=== PATIENT | female | born 1995 | race Caucasian/White ===

== ENCOUNTER 2022-04-08 11:46 | Outpatient (CLI) | payer BC, SELFPAY | END 2022-04-08 11:47 | disposition home or self-care (01) | LOC: ANHLAB 11:50 | PROVIDERS: PCP Family Medicine Sports Medicine; Visit Provider Obstetrics & Gynecology | DX: Z34.90 Encounter for supervision of normal pregnancy, unspecified, unspecified trimester (principal); Z3A.00 Weeks of gestation of pregnancy not specified | CPT/HCPCS: 36415; 86900; 86901 ==

== ENCOUNTER 2022-04-17 07:25 | Outpatient (CLI) | payer BC, SELFPAY ==
[2022-04-17 09:08] LABS: Hematocrit 35.4 % (37.0-47.0); Hemoglobin 11.8 g/dL (12.0-15.0); Mean Corpuscular HGB Conc 33.3 g/dl (32-36); Mean Corpuscular Hemoglobin 33.3 pg (26-34); Mean Platelet Volume 8.5 fl (7.4-10.4); Platelet Count Result 255 k/mm3 (150-375); Red Blood Count 3.54 M/mm3 (4.2-5.4); Red Cell Distribution Width 12.1 % (11.5-14.5); White Blood Count 11.2 K/mm3 (4.5-10.0)
[2022-04-17 09:24] LABS: Glucose 1 Hour PP 50gm Dose 101 mg/dL
[2022-04-17 10:03] LABS: HIV 1/2 Ab P24 Ag Result Negative (Negative)
== END 2022-04-17 07:26 | disposition home or self-care (01) ==
LOC: ANHLAB 07:26
PROVIDERS: PCP Family Medicine Sports Medicine; Visit Provider Student in an Organized Health Care Education/Training Program
DX: Z34.90 Encounter for supervision of normal pregnancy, unspecified, unspecified trimester (principal)
CPT/HCPCS: 36415; 82947; 85027; 86703; G0432

== ENCOUNTER 2022-06-29 08:11 | Outpatient (CLI) | payer BC, SELFPAY ==
[2022-06-29 08:54] LABS: Hematocrit 36.4 % (37.0-47.0); Hemoglobin 12.1 g/dL (12.0-15.0); Mean Corpuscular HGB Conc 33.2 g/dl (32-36); Mean Corpuscular Hemoglobin 33.2 pg (26-34); Mean Platelet Volume 8.9 fl (7.4-10.4); Platelet Count Result 255 k/mm3 (150-375); Red Blood Count 3.64 M/mm3 (4.2-5.4); Red Cell Distribution Width 12.4 % (11.5-14.5); White Blood Count 10.7 K/mm3 (4.5-10.0)
[2022-06-29 09:51] LABS: Rapid Plasma Reagin Non-Reactive (NonReactive)
== END 2022-06-29 08:12 | disposition home or self-care (01) ==
LOC: ANHLAB 08:14
PROVIDERS: PCP Family Medicine Sports Medicine; Visit Provider Obstetrics & Gynecology
DX: Z01.812 Encounter for preprocedural laboratory examination (principal)
CPT/HCPCS: 36415; 85027; 86592; 86900; 86901

== ENCOUNTER 2022-06-30 04:59 | Inpatient (IN) | payer BC, SELFPAY ==
[2022-06-30] VITALS (53 sets, daily range): BP systolic 87–134; BP diastolic 38–85; PULSE 56–230; RESP 13–18; TEMP 36.3–37.2; O2SAT 94–100; BMI 29.5
[2022-06-30] MEDS: LACTATED RINGERS 1,000 ML 125 ML IV CONT ×2 (05:40→08:21)
--- NOTE | 2022-06-30 05:41 | LDADM ---
This patient, Ivory Kowalski, was admitted to Labor/Delivery/Recovery 120 on 06/30/22 at 04:59. Plans for labor, pain management and were discussed with patient. Patient/family oriented to hospital policies and general routines including ID bracelet, bed and alarms, visiting hours, pain management, procedures, bathroom and other care routines, personal items, smoking policy, room service/diet and guest tray routines, infant security routines, and visiting hours. Patient/Family are encouraged to report perceived risks to care and to ask questions if they do not understand what they are told or what they should do. See OBIX for further documentation.
--- NOTE | 2022-06-30 06:29 | P.PNAN_ITS ---
Anes - Eval Pre Procedure Procedure: Operation Date: 06/30/22 07:30 Proposed Procedures p Section - Zev Washington MD Date/Time: 06/30/22 06:29 Pre Op Diagnosis: C/S Patient Data Age: 27 Gender: F Height: 1.63 m Weight: 78.18 kg Last Vital Signs Pulse 79 06/30/22 05:16 BP 117/79 06/30/22 05:16 Pulse Ox 100 06/30/22 05:16 O2 Del Method Room Air 06/30/22 05:40 Allergies Allergy/AdvReac Type Severity Reaction Status Date / Time azithromycin Allergy Intermediate RASH Verified 06/22/22 14:08 Home Medications Medication Instructions Recorded Confirmed Type vitamins-iron fumarate 65 1 tablet PO DAILY 11/25/21 06/22/22 History mg iron-folic acid 1 mg tablet Patient hx anesthesia problems: none Family hx anesthesia problems: none Results Review: All pre-operative results and documents have been reviewed as part of the pre- operative evaluation. [facility] Past Medical History Medical History Suppression of menstruation Surgical History Surgical History History of tonsillectomy 09/2016 Family History Family History Grandparent Diabetes mellitus Family history of malignant neoplasm of male breast Social History Social History Smoking status: Never smoker Alcohol intake: never Substance use: never Substance use type: does not use Lack of Transportation: No Lack of Food: Never True Current Housing: I Have Housing Concerned About Future Housing: No Difficulty Paying Gas/Electric Bills: No Difficulty Paying for Meds: No Currently Unemployed: No Education: Bachelor's Degree Difficulty w/ Childcare or Family Care: No Living arrangements: other Additional living arrangements comments: 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
--- NOTE | 2022-06-30 06:48 | P.PNAN_ITS ---
Anes - Eval Final PreProcedure Day of Procedure 06/30/22 06:48 Patient weight: overweight Heart: regular rate and rhythm Lungs: clear to auscultation Airway: Mallampati scale class II Neurological: alert and oriented Last oral intake: >/= 8 hours ASA classification: II Emergent: no Anesthetic plan: proceed Anesthesia type and monitoring: regional spinal and standard monitoring Results Review: All pre-operative results and documents have been reviewed as part of the pre- operative evaluation. Informed Consent: The patient's anesthetic plan and its attendant risks and benefits were discussed with the patient/family/POA. Questions were solicited and answers provided to the satisfaction of the patient/family/POA.
[2022-06-30] MEDS: ceFAZolin 2 GM/D5W 50 ML 2 GM/50 ML BAG IVPB (07:01)
--- NOTE | 2022-06-30 08:07 | WPDHPUPDATE1 ---
History and Physical Update Update Date/Time: 06/30/22 08:07 A: 1. 39 week IUP 2. breech presentation P: 1. primary LTCS History and Physical has been reviewed, including an updated exam of the patient. There are NO changes in the patient's condition. Risks, benefits, and alternatives have been discussed and questions answered. Patient agrees to proceed with procedure.
--- NOTE | 2022-06-30 08:09 | PM.OBPRVD ---
OB - Delivery Note Procedure Procedure: Procedures Operation Date: 06/30/22 07:30 <No data on this case meets the specified criteria> Events: Breech Presentation Delivery monitor: External FHT and External Uterine Route of delivery: Specimen: No Quantitative Blood Loss (ml): 510 Anesthesia type: Spinal Disposition: Floor Complications: none Narrative: Patient prepped procedure. Pfannenstiel type fashion with the skin incision. Superiorly inferiorly dissected week muscles which were then dissected bluntly and the peritoneum was entered. Bladder flap developed uterus was scored and extended through the lower segment. Breech was delivered without difficulty cord clamped cut baby was passed off the operative field to the pediatric team attendance. Uterus was manually removed and uterus was exteriorized. Cleared of membranes and clots and then closed using 0 Monocryl in running interlocking manner with good approximation hemostasis noted. Uterus returned to the abdomen and was hemostatic. All subfascial tissue was noted be hemostatic fascia was approximated 0 Vicryl from left angle midline and the right of midline with good approximation hemostasis noted. Subcutaneous tissue approximated 0 plain suture and ernst used to approximate skin edges. Patient this point was sent to recovery room in stable condition. Baby Weeks of gestation at delivery: 39 Infant gender: Female Weight (pounds): 6 Weight (ounces): 10 presentation: breech Placenta delivery description: Manual Removal Cord Vessel Description: 3 Vessels score one minute: 8 score five minutes: 9 AMG Delivery Billing Delivery Delivery: Delivery Charge
[2022-06-30] MEDS: OXYTOCIN 30 UNITS/NS 500 ML 30 UNITS/500 ML BAG 125 UNITS IV CONT (10:02)
--- NOTE | 2022-06-30 10:28 | OBPPTRN ---
1015-Patient transferred to post room #279 via stretcher. Support person present. Oriented to unit, room, information board, rooming in, admission packet and security measures. Patient verbalizes understanding.
[2022-06-30] MEDS: LORATADINE 10 MG TABLET PO (11:40)
[2022-06-30] MEDS: DEXTROSE 5%/0.45% SOD CHL 1,000 ML 125 ML IV CONT (15:39)
[2022-06-30] MEDS: KETOROLAC 30 MG/ML VIAL (*BKC) IV PUSH (16:12)
--- NOTE | 2022-06-30 16:13 | PC.NURSE ---
[id number] Introductions were made, then consulted with patient to assess needs related to . Mother led the conversation with her?plans to feed?her infant and the?experience so far. Resources provided for inpatient and outpatient services with the feeding sheet, mom/baby guide and name written on the white board. Mother voiced understanding of information and requested assistance. Mother works well with her with encouragement and education. Encouraged understanding of the benefits of skin to skin (demonstrating unwrapping infant and placing upright on her chest), stimulating with massage touch, changing positions to encourage wakefulness, how to watch for early feeding cues, responsive feeding, feeding on demand (aiming for 8-12 times in 24 hours, about every 2-3 hours), milk production, building/maintaining a milk supply, duration of feeding, signs of adequate intake/output and how to record on the feeding sheet. Reviewed positioning and ear, shoulder, hip alignment, supporting the breast to facilitate a deep latch, asymmetrical latch (off-center), leading with the chin with a big, open, wide gape and body close to mother. Infant latched optimally to the left breast in football position. Education given to mother of how to visualize suck/swallow ratios and listen for drinking at the breast. was able to maintain latch without discomfort to mother. Nipple care reviewed with optimal latch and good positioning. Reminding mother of comfort measures of healing with a warm and wet washcloth to rinse breast, then leave open to air-dry as needed. Reviewed good handwashing when or touching the breast/nipples to prevent infection. was offered the right breast but was content and no feeding cues were visualized. Mother was instructed on the practice and skill of hand expression. lapped up the 1/2 tsp of colostrum off of the spoon, then went to sleep skin to skin on mother. Resources used to facilitate learning were used with the visual handouts, /QR codes/ tool/mom and baby guide]. Mother voiced understanding of skin to skin, stimulating with massage touch, responsive feedings, hand expressed colostrum, talking to to encourage if it has been 2 -2.5 hours since the start of the last , to call if infant does not latch, or if there is discomfort with . Resources provided for inpatient/outpatient with business card, feeding sheet and the mom/baby guide. Parents voiced understanding of information, demonstrated learning and will call if there is a request for assistance. Reported to primary RN. Reported to the primary RN.
[2022-06-30] MEDS: IBUPROFEN 600 MG TABLET PO (22:19)
[2022-07-01 03:48] VITALS: BP 113/72; PULSE 82; RESP 16; TEMP 36.6; O2SAT 100
[2022-07-01] MEDS: IBUPROFEN 600 MG TABLET PO ×4 (03:51→23:04)
[2022-07-01] MEDS: SIMETHICONE 80 MG TAB.CHEW PO ×5 (03:51→23:04)
[2022-07-01 05:58] LABS: Basophils Percent Auto 0.3 % (0.2-1.2); Eosinophils Absolute Auto 0.1 K/mm3 (0-0.3); Hematocrit 31.3 % (37.0-47.0); Hemoglobin 10.2 g/dL (12.0-15.0); Immature Granulocyte Absolute 0.07 K/mm3 (0.00-0.031); Immature Granulocyte Percent A 0.5 % (0-0.5); Lymphocytes Percent Auto 12.1 % (18.3-44.2); Mean Corpuscular HGB Conc 32.6 g/dl (32-36); Mean Corpuscular Hemoglobin 32.4 pg (26-34); Mean Corpuscular Volume 99.4 fl (80-100); Mean Platelet Volume 8.9 fl (7.4-10.4); Monocytes Absolute Auto 0.6 K/mm3 (0.1-0.6); Monocytes Percent Auto 4.5 % (2.6-8.5); Neutrophils Absolute Auto 11.5 K/mm3 (1.3-6.7); Neutrophils Percent Auto 81.6 % (45.5-73.1); Platelet Count Result 229 k/mm3 (150-375); Red Blood Count 3.15 M/mm3 (4.2-5.4); Red Cell Distribution Width 12.6 % (11.5-14.5); White Blood Count 14.1 K/mm3 (4.5-10.0)
--- NOTE | 2022-07-01 07:32 | PM.OBDSVD ---
DS: Admitting Diagnosis Discharge Date 07/02/2022 Admitting Diagnosis DS: Discharge Diagnosis Discharge Diagnosis (1) , delivered: Code(s): O80 - Encounter for full-term uncomplicated delivery Status: Acute OB - DS: Summary OB Procedures : None OB Procedures Intrapartum: OB Procedures: : None Peripartum Data Procedures: Procedures Operation Date: 06/30/22 07:30 Actual Procedure Side Surgeon p Section Bilateral Zev Wahsington MD Time Spent with Patient Time attestation: Total time spent providing and/or coordinating discharge services: DS: Data Data Completed and Pending Labs on day of discharge: Labs from last 24 hours 07/01/22 03:56 WBC 14.1 H RBC 3.15 L Hgb 10.2 L Hct 31.3 L MCV 99.4 MCH 32.4 MCHC 32.6 RDW 12.6 Plt Count 229 MPV 8.9 Immature Gran % (Auto) 0.5 Neut % (Auto) 81.6 H Lymph % (Auto) 12.1 L [place] % (Auto) 4.5 Eos % (Auto) 1.0 Baso % (Auto) 0.3 Lymph # (Auto) 1.70 [place] # (Auto) 0.6 Eos # (Auto) 0.1 Baso # (Auto) 0.0 Abs Immat Gran (auto) 0.07 H Absolute Neuts (auto) 11.5 H Absolute Nucleated RBC 0.0 Nucleated RBC % 0.0 Discharge Plan Discharge Discharging Clinician: Zev Washington Patient Disposition: Home, Self-Care Activity: as tolerated Diet: as tolerated Wound Care Instructions: incision open to air Discharge Instructions: return to office Tuesday or Tuesday of next week for staple removal. Patient Instructions: Antibiotic Form Stand Alone Forms: General Discharge Information Follow-up/Referrals: Zev Washington MD [Physician] - 3 Weeks Discharge Medications: New hydrocodone-acetaminophen 5-325 mg Tablet 1 tablet PO Q3H PRN (Reason: Moderate Pain (4-6)) Qty: 20 0RF ibuprofen 600 mg Tablet 600 mg PO Q6H PRN (Reason: Cramping) Qty: 30 0RF Continued vit-iron fum-folic ac 65 mg iron- 1 mg tablet 1 tablet PO DAILY Date of admission: 06/30/22 04:59 Primary Care Provider: Aravind,Ekta Marcial Admitting Provider: Zev Washington Attending physician on admission: Zev Washington Condition: Stable
[2022-07-01 08:00] VITALS: PULSE 79; RESP 16; O2SAT 98
[2022-07-01 08:25] VITALS: BP 110/63; PULSE 79; RESP 16; TEMP 37.2; O2SAT 98
[2022-07-01] MEDS: DOCUSATE SODIUM 100 MG CAPSULE PO ×2 (08:46→23:04)
[2022-07-01] MEDS: MULTIVIT/MIN/PREN/FOL AC/IRON TABLET 1 TAB PO (08:46)
--- NOTE | 2022-07-01 10:20 | WPDANLDPN2 ---
Anes-Prog Note L&D Date/Time: 07/01/22 10:20 Comfortable throughout: section Neuraxial method: spinal Epidural/Spinal procedure site: clean & non-tender Neuro status: Neuro function grossly intact. Cardiovascular status: normal Respiratory status: normal Airway patency: baseline Mental status: baseline Post-Op hydration status: normal Vital Signs: Last Vital Signs Temp 98.9 F 07/01/22 08:25 Pulse 79 07/01/22 08:25 Resp 16 07/01/22 08:25 BP 110/63 07/01/22 08:25 Pulse Ox 98 07/01/22 08:25 O2 Del Method Room Air 06/30/22 10:30 Pain score (VAS): 2 I/O: Intake & Output 06/30/22 07/01/22 07/01/22 23:59 07:59 15:59 Intake Total 1940 800 Output Total 600 2825 Balance 1340 -2025 Post-procedural complaints: pruritis moderate, treatment effective Patient feedback: Patient satisfied with anesthetic care.
--- NOTE | 2022-07-01 10:21 | WPDANLDNPN2 ---
Anes-Prog Note L&D-Neuraxial Date/Time: 07/01/22 10:21 Neuraxial medications: intrathecal PF morphine Opiod-related complaints: pruritis moderate, treatment effective Patient feedback: Patient satisfied with post-operative pain management.
--- NOTE | 2022-07-01 11:49 | PC.NURSE ---
[id number] Mother verbalizes she is able to independently latch with appropriate positioning/alignment. She denies any nipple discomfort and is responsively . is currently meeting outcomes for weight, output, jaundice and feeding frequencies of 8-12 times in 24 hours. Mother declines any additional assistance/education at this time. Mother is encouraged to call for assistance if her doesn?t latch or there is discomfort with latching. Mother voiced understanding of information shared, will call for assistance if there is pain with latching, unable to wake her infant to breastfeed or for an assessment. The mom was reminded of the mom/baby guide for an additional resource.
[2022-07-01 19:20] VITALS: BP 111/61; PULSE 82; RESP 18; TEMP 36.7; O2SAT 98
[2022-07-02] MEDS: SIMETHICONE 80 MG TAB.CHEW PO ×2 (06:00→08:30)
[2022-07-02] MEDS: IBUPROFEN 600 MG TABLET PO (06:00)
[2022-07-02 08:05] VITALS: BP 119/65; PULSE 79; RESP 18; TEMP 36.3; O2SAT 100
[2022-07-02] MEDS: DOCUSATE SODIUM 100 MG CAPSULE PO (08:30)
[2022-07-02] MEDS: MULTIVIT/MIN/PREN/FOL AC/IRON TABLET 1 TAB PO (08:30)
[2022-07-03 11:12] VITALS: BP 112/69; PULSE 85; RESP 18; TEMP 36.7; O2SAT 99
== END 2022-07-02 10:25 | disposition home or self-care (01) | DRG 788 ==
LOC: ANHLDR 05:07 → ANHOB2 10:24
PROVIDERS: Admitting Provider Obstetrics & Gynecology; PCP Family Medicine Sports Medicine; Visit Provider Obstetrics & Gynecology
PROC: 10D00Z1 Extraction of Products of Conception, Low, Open Approach (ICD-10-PCS; CPT 59514; principal; 2022-06-30 07:30)
DX: O32.1XX0 Maternal care for breech presentation, not applicable or unspecified (principal); Z37.0 Single live birth; Z3A.39 39 weeks gestation of pregnancy; O99.73 Diseases of the skin and subcutaneous tissue complicating the puerperium; L29.9 Pruritus, unspecified
CPT/HCPCS: 36415; 85025; 85027; 86592; 86900; 86901; A9270; J0131; J0690; J1885; J2274; J2405; J2590; J7120

== ENCOUNTER 2023-12-02 09:43 | Outpatient (CLI) | payer BC, SELFPAY | END 2023-12-02 09:44 | disposition home or self-care (01) | LOC: ANHLAB 09:45 | PROVIDERS: PCP Family Medicine Sports Medicine; Visit Provider Obstetrics & Gynecology | DX: O02.1 Missed abortion (principal) | CPT/HCPCS: 36415; 84702 ==

== ENCOUNTER 2023-12-05 07:30 | Outpatient (CLI) | payer BC, SELFPAY ==
[2023-12-05 08:26] LABS: Beta HCG Quantitative < 2.39 mIU/ML
== END 2023-12-05 07:31 | disposition home or self-care (01) ==
LOC: ANHLAB 07:31
PROVIDERS: PCP Family Medicine Sports Medicine; Visit Provider Obstetrics & Gynecology
DX: O02.1 Missed abortion (principal)
CPT/HCPCS: 36415; 84702

== ENCOUNTER 2024-01-03 09:01 | Outpatient (CLI) | payer BC, SELFPAY | END 2024-01-03 09:02 | disposition home or self-care (01) | PROVIDERS: PCP Family Medicine Sports Medicine; Visit Provider Obstetrics & Gynecology | DX: N92.6 Irregular menstruation, unspecified (principal) | CPT/HCPCS: 36415; 84702 ==

== ENCOUNTER 2024-01-05 11:45 | Outpatient (CLI) | payer BC, SELFPAY | END 2024-01-05 11:46 | disposition home or self-care (01) | LOC: ANHLAB 11:46 | PROVIDERS: PCP Family Medicine Sports Medicine; Visit Provider Obstetrics & Gynecology | DX: N92.6 Irregular menstruation, unspecified (principal) | CPT/HCPCS: 36415; 84702 ==

== ENCOUNTER 2024-05-03 08:19 | Outpatient (CLI) | payer BC, SELFPAY ==
[2024-05-03 08:47] LABS: Basophils Percent Auto 0.2 % (0.2-1.2); Eosinophils Absolute Auto 0.1 K/mm3 (0-0.3); Eosinophils Percent Auto 1.1 % (0-4.4); Hematocrit 35.8 % (37.0-47.0); Hemoglobin 12.3 g/dL (12.0-15.0); Immature Granulocyte Absolute 0.06 K/mm3 (0.00-0.031); Immature Granulocyte Percent A 0.6 % (0-0.5); Lymphocytes Absolute Auto 1.97 K/mm3 (0.9-3.2); Lymphocytes Percent Auto 19.9 % (18.3-44.2); Mean Corpuscular HGB Conc 34.4 g/dl (32-36); Mean Corpuscular Hemoglobin 33.3 pg (26-34); Mean Platelet Volume 8.7 fl (7.4-10.4); Monocytes Absolute Auto 0.5 K/mm3 (0.1-0.6); Neutrophils Absolute Auto 7.3 K/mm3 (1.3-6.7); Neutrophils Percent Auto 73.2 % (45.5-73.1); Platelet Count Result 257 k/mm3 (150-375); Red Blood Count 3.69 M/mm3 (4.2-5.4); Red Cell Distribution Width 12.1 % (11.5-14.5); White Blood Count 9.9 K/mm3 (4.5-10.0)
[2024-05-03 09:33] LABS: HIV 1/2 Ab P24 Ag Result Negative (Negative)
[2024-05-03 10:57] LABS: Hepatitis B Surface Antigen Negative (Negative); Rubella IgG Antibody 58.3 IU/ML
[2024-05-03 18:50] LABS: Rapid Plasma Reagin Non-Reactive (NonReactive)
[2024-05-04 13:45] LABS: CMV IgG Antibody <0.60 U/mL; Varicella IgG Antibody 4.54 S/CO
== END 2024-05-03 08:20 | disposition home or self-care (01) ==
PROVIDERS: PCP Family Medicine Sports Medicine; Visit Provider Obstetrics & Gynecology
DX: Z34.90 Encounter for supervision of normal pregnancy, unspecified, unspecified trimester (principal)
CPT/HCPCS: 36415; 85025; 86592; 86644; 86703; 86747; 86762; 86787; 86850; 86900; 86901; 87086; 87340; G0432

== ENCOUNTER 2024-06-15 08:37 | Outpatient (CLI) | payer BC, SELFPAY ==
[2024-06-15 10:22] LABS: Hemoglobin 11.5 g/dL (12.0-15.0); Mean Corpuscular HGB Conc 33.8 g/dl (32-36); Mean Corpuscular Hemoglobin 32.8 pg (26-34); Mean Corpuscular Volume 96.9 fl (80-100); Mean Platelet Volume 8.5 fl (7.4-10.4); Platelet Count Result 269 k/mm3 (150-375); Red Blood Count 3.51 M/mm3 (4.2-5.4); Red Cell Distribution Width 11.9 % (11.5-14.5); White Blood Count 9.6 K/mm3 (4.5-10.0)
[2024-06-15 10:40] LABS: Glucose 1 Hour PP 50gm Dose 81 mg/dL
[2024-06-15 10:54] LABS: Rapid Plasma Reagin Non-Reactive (NonReactive)
[2024-06-15 11:21] LABS: HIV 1/2 Ab P24 Ag Result Negative (Negative)
== END 2024-06-15 08:38 | disposition home or self-care (01) ==
LOC: ANHLAB 08:38
PROVIDERS: Visit Provider Obstetrics & Gynecology
DX: Z34.90 Encounter for supervision of normal pregnancy, unspecified, unspecified trimester (principal)
CPT/HCPCS: 36415; 82947; 85027; 86592; 86703; G0432

== ENCOUNTER 2024-08-20 13:28 | Outpatient (RCR) | payer BC, SELFPAY ==
[2024-08-20 13:58] VITALS: BP 119/73; PULSE 78
== END 2024-09-04 17:59 | disposition home or self-care (01) ==
LOC: ANHOBOP 13:28
PROVIDERS: Visit Provider Obstetrics & Gynecology
DX: O36.8190 Decreased fetal movements, unspecified trimester, not applicable or unspecified (principal); Z3A.38 38 weeks gestation of pregnancy
CPT/HCPCS: 59025

== ENCOUNTER 2024-09-02 06:24 | Inpatient (IN) | payer BC, SELFPAY ==
[2024-09-02] VITALS (174 sets, daily range): BP systolic 65–147; BP diastolic 30–129; PULSE 59–150; RESP 14–20; TEMP 36.2–37.6; O2SAT 84–100
--- NOTE | 2024-09-02 08:25 | LDADM ---
This patient, Ivory Kowalski, was admitted to Labor/Delivery/Recovery 102 on 09/02/24 at 06:24. Plans for labor, pain management and were discussed with patient. Patient/family oriented to hospital policies and general routines including ID bracelet, bed and alarms, visiting hours, pain management, procedures, bathroom and other care routines, personal items, smoking policy, room service/diet and guest tray routines, infant security routines, and visiting hours. Patient/Family are encouraged to report perceived risks to care and to ask questions if they do not understand what they are told or what they should do. See OBIX for further documentation.
[2024-09-02 09:08] LABS: Basophils Percent Auto 0.3 % (0.2-1.2); Eosinophils Absolute Auto 0.1 K/mm3 (0-0.3); Eosinophils Percent Auto 0.8 % (0-4.4); Hematocrit 41.4 % (37.0-47.0); Hemoglobin 13.6 g/dL (12.0-15.0); Immature Granulocyte Absolute 0.05 K/mm3 (0.00-0.031); Immature Granulocyte Percent A 0.4 % (0-0.5); Lymphocytes Absolute Auto 1.79 K/mm3 (0.9-3.2); Lymphocytes Percent Auto 15.4 % (18.3-44.2); Mean Corpuscular HGB Conc 32.9 g/dl (32-36); Mean Corpuscular Hemoglobin 31.6 pg (26-34); Mean Corpuscular Volume 96.1 fl (80-100); Mean Platelet Volume 8.8 fl (7.4-10.4); Monocytes Absolute Auto 0.5 K/mm3 (0.1-0.6); Monocytes Percent Auto 4.1 % (2.6-8.5); Neutrophils Absolute Auto 9.2 K/mm3 (1.3-6.7); Platelet Count Result 271 k/mm3 (150-375); Red Blood Count 4.31 M/mm3 (4.2-5.4); Red Cell Distribution Width 13.1 % (11.5-14.5); White Blood Count 11.7 K/mm3 (4.5-10.0)
[2024-09-02 09:54] LABS: Syphilis IgG/IgM Antibody Negative (Negative)
[2024-09-02 10:00] LABS: HIV 1/2 Ab P24 Ag Result Negative (Negative)
[2024-09-02] MEDS: LACTATED RINGERS 1,000 ML 125 ML IV CONT ×3 (11:54→15:55)
--- NOTE | 2024-09-02 12:34 | WPDANESEPP ---
Anes - Eval Pre Procedure Procedure: labor epidural Date/Time: 09/02/24 12:34 Preop Diagnosis: labor pain Pre Op Diagnosis: Contractions Patient Data Age: 29 Gender: F Height: 1.63 m Weight: 79.5 kg Last Vital Signs Temp 36.6 C 09/02/24 11:08 Pulse 78 09/02/24 12:16 BP 104/67 09/02/24 12:16 O2 Del Method Room Air 09/02/24 07:58 Allergies Allergy/AdvReac Type Severity Reaction Status Date / Time azithromycin Allergy Intermediate RASH Verified 08/11/24 13:48 Home Medications ?Medication ?Instructions ?Recorded ?Confirmed ?Type vitamins-iron fumarate 65 1 tablet PO DAILY 11/25/21 08/11/24 History mg iron-folic acid 1 mg tablet Laboratory Tests 09/02/24 08:50 WBC 11.7 H K/mm3 (4.5-10.0) RBC 4.31 M/mm3 (4.2-5.4) Hgb 13.6 g/dL (12.0-15.0) Hct 41.4 % (37.0-47.0) MCV 96.1 fl (80-100) MCH 31.6 pg (26-34) MCHC 32.9 g/dl (32-36) RDW 13.1 % (11.5-14.5) Plt Count 271 k/mm3 (150-375) MPV 8.8 fl (7.4-10.4) Immature Gran % (Auto) 0.4 % (0-0.5) Neut % (Auto) 79.0 H % (45.5-73.1) Lymph % (Auto) 15.4 L % (18.3-44.2) [place] % (Auto) 4.1 % (2.6-8.5) Eos % (Auto) 0.8 % (0-4.4) Baso % (Auto) 0.3 % (0.2-1.2) Lymph # (Auto) 1.79 K/mm3 (0.9-3.2) [place] # (Auto) 0.5 K/mm3 (0.1-0.6) Eos # (Auto) 0.1 K/mm3 (0-0.3) Baso # (Auto) 0.0 K/mm3 (0.0-0.1) Abs Immat Gran (auto) 0.05 H K/mm3 (0.00-0.031) Absolute Neuts (auto) 9.2 H K/mm3 (1.3-6.7) Absolute Nucleated RBC 0.000 K/mm3 (0.0-0.012) Nucleated RBC % 0.0 % (0.0-0.2) Syphilis IgG/IgM Ab Negative (Negative) HIV 1&2 Ab/P24 Ag 4thGn Negative (Negative) Blood Type A Positive Antibody Screen Negative Patient hx anesthesia problems: none Family hx anesthesia problems: none Results Review: All pre-operative results and documents have been reviewed as part of the pre-operative evaluation. [facility] Past Medical History Medical History Suppression of menstruation Surgical History Surgical History History of tonsillectomy 09/2016 Family History Family History Grandparent Diabetes mellitus Family history of malignant neoplasm of male breast Social History Social History Smoking status: Never smoker Alcohol intake: never Substance use: never Substance use type: does not use Do You Feel Safe in your Home?: Yes Lack of Transportation: No Lack of Food: Never True Current Housing: I Have Housing Concerned About Future Housing: No Difficulty Paying Gas/Electric Bills: No Difficulty Paying for Meds: No Currently Unemployed: No Education: Bachelor's Degree Difficulty w/ Childcare or Family Care: No Living arrangements: other Additional living arrangements comments: Occupation/Education: occupation 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
--- NOTE | 2024-09-02 16:32 | PM.IMHP ---
H&P: HPI History of Present Illness Date/Time: 09/02/24 16:32 Chief Complaint: Contractions Narrative: 29 y/o at 39 5/7 weeks here with contractions. She has a prior for breech. She switched providers hoping to find a doctor who would support a TOLAC. Contractions yesterday, finally strong enough this morning to get her to come in. GBS neg. EFW at 36 weeks 6#9oz. Prior baby was 6#6oz by . She is currently comfortable with epidural. Strongly wants a TOLAC. Review of Systems Review of Systems: All systems reviewed & are unremarkable except as noted in HPI and below [facility] Surgical History Surgical History (Updated 09/02/24 @ 16:42 by Ulysses Charles MD) History of delivery History of tonsillectomy 09/2016 Family History Family History Grandparent Diabetes mellitus Family history of malignant neoplasm of male breast Social History Social History Smoking status: Never smoker Alcohol intake: never Substance use: never Substance use type: does not use Do You Feel Safe in your Home?: Yes Lack of Transportation: No Lack of Food: Never True Current Housing: I Have Housing Concerned About Future Housing: No Difficulty Paying Gas/Electric Bills: No Difficulty Paying for Meds: No Currently Unemployed: No Education: Bachelor's Degree Difficulty w/ Childcare or Family Care: No Living arrangements: other Additional living arrangements comments: Occupation/Education: occupation 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 Gender identity (if verbalized by the patient): Female Sexual Orientation (if Verbalized by the Patient): Straight or Heterosexual Spiritual care concerns: No Meds Home Medications and Allergies Home Medications ?Medication ?Instructions ?Recorded ?Confirmed ?Type vitamins-iron fumarate 65 1 tablet PO DAILY 11/25/21 08/11/24 History mg iron-folic acid 1 mg tablet Allergies Allergy/AdvReac Type Severity Reaction Status Date / Time azithromycin Allergy Intermediate RASH Verified 08/11/24 13:48 Vital Signs Vital Signs - 24 hr 09/02/24 07:58 09/02/24 08:41 09/02/24 09:04 Temperature 36.2 C L Pulse Rate 99 Blood Pressure 111/74 Pulse Oximetry Oxygen Delivery Room Air 09/02/24 09:16 09/02/24 09:31 09/02/24 09:46 Temperature Pulse Rate 97 98 102 H Blood Pressure 117/73 112/67 132/64 Pulse Oximetry Oxygen Delivery 09/02/24 10:01 09/02/24 10:16 09/02/24 10:31 Temperature Pulse Rate 91 85 92 Blood Pressure 110/65 107/58 L 90/71 L Pulse Oximetry Oxygen Delivery 09/02/24 10:45 09/02/24 11:08 09/02/24 11:16 Temperature 36.6 C Pulse Rate 82 95 Blood Pressure 117/63 103/65 Pulse Oximetry Oxygen Delivery 09/02/24 11:46 09/02/24 12:01 09/02/24 12:16 Temperature Pulse Rate 148 H 90 78 Blood Pressure 147/129 H 112/72 104/67 Pulse Oximetry Oxygen Delivery 09/02/24 12:38 09/02/24 12:40 09/02/24 12:45 Temperature Pulse Rate 90 Blood Pressure 114/72 Pulse Oximetry 99 100 Oxygen Delivery 09/02/24 12:50 09/02/24 12:55 09/02/24 13:00 Temperature Pulse Rate Blood Pressure Pulse Oximetry 100 100 100 Oxygen Delivery 09/02/24 13:01 09/02/24 13:05 09/02/24 13:06 Temperature Pulse Rate 83 76 Blood Pressure 121/60 113/49 L Pulse Oximetry 100 Oxygen Delivery 09/02/24 13:08 09/02/24 13:10 09/02/24 13:14 Temperature Pulse Rate 78 Blood Pressure 114/63 Pulse Oximetry 100 97 Oxygen Delivery 09/02/24 13:16 09/02/24 13:18 09/02/24 13:24 Temperature Pulse Rate 78 81 Blood Pressure 107/52 L 108/63 Pulse Oximetry 99 Oxygen Delivery 09/02/24 13:27 09/02/24 13:30 09/02/24 13:32 Temperature Pulse Rate Blood Pressure Pulse Oximetry 97 99 98 Oxygen Delivery 09/02/24 13:37 09/02/24 13:42 09/02/24 13:44 Temperature Pulse Rate 71 76 Blood Pressure 131/61 94/41 L Pulse Oximetry 94 99 Oxygen Delivery 09/02/24 13:47 09/02/24 13:48 09/02/24 13:51 Temperature Pulse Rate 80 79 70 Blood Pressure 86/54 L 104/49 L 92/53 L Pulse Oximetry 100 Oxygen Delivery 09/02/24 13:52 09/02/24 13:53 09/02/24 13:57 Temperature 36.3 C L Pulse Rate 66 75 Blood Pressure 99/60 L 83/30 L Pulse Oximetry 100 100 Oxygen Delivery 09/02/24 14:00 09/02/24 14:01 09/02/24 14:02 Temperature Pulse Rate 77 76 Blood Pressure 70/44 L 98/62 L Pulse Oximetry 100 Oxygen Delivery 09/02/24 14:03 09/02/24 14:06 09/02/24 14:07 Temperature Pulse Rate 66 88 Blood Pressure 111/67 105/66 Pulse Oximetry 100 Oxygen Delivery 09/02/24 14:08 09/02/24 14:11 09/02/24 14:12 Temperature Pulse Rate 82 84 Blood Pressure 107/62 103/55 L Pulse Oximetry 100 Oxygen Delivery 09/02/24 14:13 09/02/24 14:14 09/02/24 14:17 Temperature Pulse Rate 71 70 Blood Pressure 122/60 104/55 L Pulse Oximetry 98 Oxygen Delivery 09/02/24 14:30 09/02/24 14:46 09/02/24 15:01 Temperature Pulse Rate 71 65 64 Blood Pressure 113/80 113/66 98/51 L Pulse Oximetry Oxygen Delivery 09/02/24 15:03 09/02/24 15:08 09/02/24 15:13 Temperature Pulse Rate Blood Pressure Pulse Oximetry 99 100 100 Oxygen Delivery 09/02/24 15:16 09/02/24 15:18 09/02/24 15:23 Temperature Pulse Rate 63 Blood Pressure 100/58 L Pulse Oximetry 100 100 Oxygen Delivery 09/02/24 15:28 09/02/24 15:30 09/02/24 15:33 Temperature Pulse Rate 61 Blood Pressure 111/72 Pulse Oximetry 100 100 Oxygen Delivery 09/02/24 15:38 09/02/24 15:42 09/02/24 15:46 Temperature Pulse Rate 126 H Blood Pressure 113/65 Pulse Oximetry 100 95 Oxygen Delivery 09/02/24 15:47 09/02/24 15:52 09/02/24 15:55 Temperature Pulse Rate Blood Pressure Pulse Oximetry 100 100 93 Oxygen Delivery 09/02/24 16:00 09/02/24 16:01 09/02/24 16:02 Temperature Pulse Rate 88 Blood Pressure 73/54 L Pulse Oximetry 100 100 84 L Oxygen Delivery 09/02/24 16:04 09/02/24 16:07 09/02/24 16:12 Temperature Pulse Rate 60 Blood Pressure 116/72 Pulse Oximetry 100 100 Oxygen Delivery 09/02/24 16:16 09/02/24 16:17 09/02/24 16:22 Temperature Pulse Rate 61 Blood Pressure 92/69 L Pulse Oximetry 100 100 Oxygen Delivery 09/02/24 16:27 09/02/24 16:30 09/02/24 16:31 Temperature 36.6 C Pulse Rate 73 Blood Pressure 109/63 Pulse Oximetry 100 Oxygen Delivery Exam Const: Orientation/consciousness: patient oriented x3 Other: Well-developed, well-nourished female in no acute distress. Neck: Thyroid: thyroid normal Lymphatic: no lymphadenopathy noted (in neck, axilla or inguinal nodes) Resp: Effort & Inspection: normal respiratory effort Auscultation: clear to auscultation bilaterally Cardio: Rate: regular rate Rhythm: regular rhythm Heart sounds: S1 normal heart sound present and S2 normal heart sound present GI: Other: ABD: Soft, nontender, nondistended, gravid. NST reactive 125. TOCO: irregular contractions. No guarding or rebound tenderness. No hepatosplenomegaly. : General: Yes no CVA tenderness Other: Cervix 5/80/-2. Bloody show. Vertex. AROM with clear fluid. IUPC placed. Back/Spine/Pelvis: Back: no CVA tenderness Skin: General skin exam: normal color and no rashes or lesions noted Neuro: General: patient oriented x3 Extrem: Other: Extremities: nontender with no edema Psych: Mental Status: mental status grossly normal Affect: normal affect H&P: Results Labs Labs: Short CBC 09/02/24 Range/Units 08:50 WBC 11.7 H (4.5-10.0) K/mm3 Hgb 13.6 (12.0-15.0) g/dL Hct 41.4 (37.0-47.0) % Plt Count 271 (150-375) k/mm3 Assessment and Plan Assessment and plan (1) Term : Code(s): Z34.90 - Encounter for supervision of normal , unspecified, unspecified trimester Status: Acute Assessment and Plan: A: IUP at 39 5/7 weeks with labor, prior . She desires TOLAC. P: We reviewed risks, benefits and alternatives in detail, including risks of uterine rupture and attendant risks of maternal and morbidity and mortality. She still desires to continue labor. Will continue to observe closely, and plan to augment labor as needed. (2) History of delivery: Code(s): Z98.891 - History of uterine scar from previous surgery Status: Acute
--- NOTE | 2024-09-02 18:10 | PM.OBPNLAB ---
Pain Control Date/time seen: 09/02/24 18:10 Comfortable with epidural. NST 125 reactive, but with occasional late decelerations with strong contractions. TOCO: contractions irregular. Cervix 5/90/-2. Offered either labor augmentation with oxytocin, or repeat . Reviewed risks, benefits and alternatives in detail, and she would like to continue labor for now. Start oxytocin augmentation. Will watch closely.
[2024-09-02] MEDS: OXYTOCIN 30 UNITS/NS 500 ML 30 UNITS/500 ML BAG IV CONT (18:15)
--- NOTE | 2024-09-02 19:47 | PM.OBPNLAB ---
Pain Control Date/time seen: 09/02/24 19:47 Still comfortable with epidural. Oxytocin had been briefly started, has been stopped due to FHR changes. NST with intermittent decelerations after strong contractions. TOCO: contractions every 4-6 min. Cervix 5/90/-2. Unchanged. A: Protracted dilation in the setting of prior . P: Offered repeat . Reviewed risks, benefits and alternatives. She and her partner will discuss whether to try labor a little longer, or proceed to .
--- NOTE | 2024-09-02 20:11 | PM.OBPNLAB ---
Pain Control Date/time seen: 09/02/24 20:11 Patient agrees to undergo repeat for arrest of dilation and nonreassuring heart rate tracing.
--- NOTE | 2024-09-02 20:12 | WPDHPUPDATE1 ---
History and Physical Update Update Date/Time: 09/02/24 20:12 History and Physical has been reviewed, including an updated exam of the patient. There are NO changes in the patient's condition. Risks, benefits, and alternatives have been discussed and questions answered. Patient agrees to proceed with procedure.
[2024-09-02] MEDS: ONDANSETRON INJ 4 MG/2 ML VIAL IV PUSH (20:13)
[2024-09-02] MEDS: FAMOTIDINE 20 MG/2 ML VIAL IV PUSH (20:14)
[2024-09-02] MEDS: ceFAZolin 2 GM/D5W 50 ML 2 GM/50 ML BAG IVPB (20:15)
--- NOTE | 2024-09-02 22:01 | P.PCNOB_ITS ---
OB - Delivery Note Procedure Delivery date: 09/02/24 Pre-op diagnosis: Arrest of Dilation and Non-Reassuring Status Post-op Diagnosis: Same Induction method: None Delivery augmentation: Rupture of Membranes and Pitocin Delivery monitor: External FHT, External Uterine and Internal Uterine Procedure Performed: Repeat Surgeon: Ulysses Charles MD Anesthesia type: Epidural Description of Procedure/Findings: The patient was taken to the operating room where she was prepared and draped in the usual sterile fashion in dorsal supine position with a leftward tilt. She received cefazolin and azithromycin preoperatively. Epidural anesthesia was f ound to be adequate. A Pfannenstiel skin incision was made, excising the previous keloid scar, carrying through to the underlying layer of the fascia. The fascia was incised in the midline and the incision was extended laterally. The fascia was dissected free of the underlying rectus muscles. The rectus muscles were in the midline. The peritoneum was identified, tented up and entered sharply. The peritoneal incision was carefully extended laterally. Tissue edema and adhesions obscured visualization of the bladder, which was densely adherent to the lower uterine segment. The bladder blade was placed. The vesicouterine peritoneum was identified, tented up and entered sharply. The incision was extended laterally and the bladder flap was very carefully developed, again with difficulty owing to adhesions. The bladder blade was replaced. The uterus was then incised sharply in a transverse fashion along the lower uterine segment. The incision was extended laterally. The infant's head was delivered atraumatically to the sterile field, followed by the body. The nose and mouth were bulb suctioned. After a delay, the cord was clamped and cut. The infant was handed off the field. Cord blood was collected. The placenta was removed manually and was passed off the field. The uterus was exteriorized and cleared of all clots and debris. The uterine incision was re approximated using 0 Monocryl in a running, locked fashion. Excellent hemostasis resulted as did excellent reapproximation of the normal anatomy. The uterus was returned the abdomen. The pelvis was irrigated copiously with warmed normal saline. The bladder flap was repaired using a running stitch of 0 Monocryl, and the dawson bulb was palpated to be remote from the repair line. Rigorous hemostasis was assured. The fascial layer was reapproximated using 0 Vicryl in a running fashion. The skin was closed with a running, subcuticular stitch of 4 0 Vicryl. Dermaflex was applied externally. Sponge, lap, needle and instrument counts were correct. The patient was taken to the recovery room in stable condition. The went to the nursery in stable condition. I was present and scrubbed the entire procedure. Of note, the urine was bloody before the surgery began, and remained similar after the procedure had been completed. Specimen: Yes (cord blood) Estimated Blood Loss: 1,045 Drains: Yes (dawson) Packing: No Pathology: Yes (cord blood) Complications: None Condition: Stable Disposition: PACU Baby Date of : 09/02/24 Time of : 21:06 Gestational Age by Date: 39 gender: Male Weight (pounds): 7 Weight (ounces): 14 presentation: vertex Placenta delivery description: Manual Removal and Normal Configuration Cord Vessel Description: 3 Vessels and Delayed Cord Clamping score one minute: 8 score five minutes: 9
--- NOTE | 2024-09-02 22:20 | PM.OBDSVD ---
DS: Admitting Diagnosis Discharge Date 09/04/2024 <Rodri Simpson MD - Last Filed: 09/04/24 07:24> Admitting Diagnosis IUP at 39 5/7 weeks Labor Prior <Ulysses Charles MD - Last Filed: 09/06/24 08:40> DS: Discharge Diagnosis Discharge Diagnosis (1) delivery delivered: Code(s): O82 - Encounter for delivery without indication <Ulysses Charles MD - Last Filed: 09/06/24 08:40> Status: Acute <Ulysses Charles MD - Last Filed: 09/06/24 08:40> OB - DS: Summary OB Procedures : None <Ulysses Charles MD - Last Filed: 09/06/24 08:40> OB Procedures Intrapartum: <Ulysses Charles MD - Last Filed: 09/06/24 08:40> OB Procedures: : None <Ulysses Charles MD - Last Filed: 09/06/24 08:40> Peripartum Data Procedures: Procedures Operation Date: 09/02/24 20:10 <No data on this case meets the specified criteria> <Ulysses Charles MD - Last Filed: 09/06/24 08:40> Time Spent with Patient Time attestation: Total time spent providing and/or coordinating discharge services: <Ulysses Charles MD - Last Filed: 09/06/24 08:40> DS: Data Data Completed and Pending Labs on day of discharge: Labs from last 24 hours 09/02/24 08:50 WBC 11.7 H RBC 4.31 Hgb 13.6 Hct 41.4 MCV 96.1 MCH 31.6 MCHC 32.9 RDW 13.1 Plt Count 271 MPV 8.8 Immature Gran % (Auto) 0.4 Neut % (Auto) 79.0 H Lymph % (Auto) 15.4 L [place] % (Auto) 4.1 Eos % (Auto) 0.8 Baso % (Auto) 0.3 Lymph # (Auto) 1.79 [place] # (Auto) 0.5 Eos # (Auto) 0.1 Baso # (Auto) 0.0 Abs Immat Gran (auto) 0.05 H Absolute Neuts (auto) 9.2 H Absolute Nucleated RBC 0.000 Nucleated RBC % 0.0 Syphilis IgG/IgM Ab Negative HIV 1&2 Ab/P24 Ag 4thGn Negative Blood Type A Positive Antibody Screen Negative <Ulysses Charles MD - Last Filed: 09/06/24 08:40> Discharge Plan Discharge Attending physician on discharge: Rodri Carey <Ulysses Charles MD - Last Filed: 09/06/24 08:40> Rodri Carey <Rodri Simpson MD - Last Filed: 09/04/24 07:24> Consulting providers: Ulysses Charles; Sadaf Engel; Cassadnra Wagner <Ulysses Charles MD - Last Filed: 09/06/24 08:40> Discharging Clinician: Rodri Carey <Ulysses Charles MD - Last Filed: 09/06/24 08:40> Rodri Carey <Rodri Simpson MD - Last Filed: 09/04/24 07:24> Patient Disposition: Home <Ulysses Charles MD - Last Filed: 09/06/24 08:40> Activity: may shower, may drive after 2 weeks and pelvic rest <Ulysses Charles MD - Last Filed: 09/06/24 08:40> may shower, may drive after 2 weeks and pelvic rest <Rodri Simpson MD - Last Filed: 09/04/24 07:24> Diet: regular <Ulysses Charles MD - Last Filed: 09/06/24 08:40> regular <Rodri Simpson MD - Last Filed: 09/04/24 07:24> Wound Care Instructions: incision open to air <Ulysses Charles MD - Last Filed: 09/06/24 08:40> incision open to air <Rodri Simpson MD - Last Filed: 09/04/24 07:24> Discharge Instructions: Call or return if temperature above 100.4? F, increased abdominal pain, increased vaginal bleeding or any new problems. Education: Mom and Baby Guide Given to: Mother Follow-Up: Call your delivering provider's office for an appointment to be seen in: 4 Weeks Mom and baby should come to the [facility] for the follow-up appointment. Appointment Date/Time: September 05, 2024 at 9:00 am What to expect at your follow-up visit: Blood Pressure Check Physical Assessment Call [phone] if you are unable to keep your appointment time. BREAST CARE: * Wear a snug supportive bra. * For engorgement discomfort: Breast Feeding: * Apply warm moist washcloths * Express milk as needed to relieve engorgement * Wear loose clothing Bottle Feeding: * May apply ice packs * For sore nipples: * Identify correct latch-on * Apply warm moist washcloths before and after nursing * Air dry nipples after nursing * May apply Lansinoh cream to nipples ABDOMINAL INCISION: * Allow incision to air dry * Do NOT use lotions for powders on your incision * When showering, allow soap and water to run over the incision, but do not wash incision EPISIOTOMY/PERINEAL CARE: * Until bleeding stops, use your miguelangel bottle after urinating * Change your pad frequently throughout the day * You may take sitz baths several times a day (fill your bathtub with warm water and soak for 20 minutes.) Do NOT bathe in the water * No tub baths until seen by your physician - You may shower ACTIVITY: * Rest as much as possible. * Do not exercise or lift anything heavier than your baby (such as laundry or other children.) * Avoid stairs or driving as much as possible. * Do not put anything into the vagina. No douching, tampons, or sexual activity until seen by physician. NOTIFY PHYSICIAN IF YOU HAVE ANY QUESTIONS OR IF ANY OF THE FOLLOWING SYMPTOMS OCCUR: * If your episiotomy or incision becomes red, swollen, or more painful than what you have experienced in the hospital. * If your vaginal bleeding becomes foul smelling. * If your vaginal bleeding becomes more heavy than a period or if your bleeding changes from pink to bright red. However, you may pass an occasional walnut-sized clot once or twice for the first week . * If you experience a sharp, shooting pain in you calves. * If you discover a hard, reddened area on your breast or if you experience flu-like symptoms. DIET: * Eat regular, well-balanced meals. * Drink plenty of fluids daily. If , drink to thirst. <Ulysses Charles MD - Last Filed: 09/06/24 08:40> Patient Language: Indonesian <Ulysses Charles MD - Last Filed: 09/06/24 08:40> Stand Alone Forms: General Discharge Information <Ulysses Charles MD - Last Filed: 09/06/24 08:40> Follow-up/Referrals: Rodri Carey MD [Physician] - 4 Weeks <Ulysses Charles MD - Last Filed: 09/06/24 08:40> Discharge Medications: New ibuprofen 600 mg tablet 600 mg PO Q6H PRN (Reason: cramps) Qty: 30 0RF oxycodone-acetaminophen [Percocet] 5-325 mg tablet 1 - 2 tablet PO Q6H PRN (Reason: pain) Qty: 30 0RF Continued vit-iron fum-folic ac 65 mg iron- 1 mg tablet 1 tablet PO DAILY <Ulysses Charles MD - Last Filed: 09/06/24 08:40> Date of admission: 09/02/24 06:24 <Ulysses Charles MD - Last Filed: 09/06/24 08:40> Primary Care Provider: UNKNOWN,DOCTOR <Ulysses Charles MD - Last Filed: 09/06/24 08:40> Admitting Provider: Rodri Carey <Ulysses Charles MD - Last Filed: 09/06/24 08:40> Attending physician on admission: Rodri Carey <Ulysses Charles MD - Last Filed: 09/06/24 08:40> Condition: Stable <Ulysses Charles MD - Last Filed: 09/06/24 08:40>
[2024-09-02] MEDS: OXYTOCIN 30 UNITS/NS 500 ML 30 UNITS/500 ML BAG 125 UNITS IV CONT (23:35)
[2024-09-03 00:10] VITALS: BP 109/55; PULSE 69; RESP 16; TEMP 36.9; O2SAT 98
[2024-09-03] MEDS: LORATADINE 10 MG TABLET PO (00:47)
[2024-09-03] MEDS: SIMETHICONE 80 MG TAB.CHEW PO ×4 (00:47→16:11)
[2024-09-03] MEDS: DEXTROSE 5%/0.45% SOD CHL 1,000 ML 125 ML IV CONT (03:26)
[2024-09-03] MEDS: ACETAMINOPHEN 325 MG TABLET 650 MG PO ×4 (03:27→22:31)
[2024-09-03] MEDS: KETOROLAC 15 MG/ML VIAL (*BKC) IV PUSH ×4 (03:28→22:31)
[2024-09-03 03:40] VITALS: BP 97/54; PULSE 67; RESP 16; TEMP 36.4; O2SAT 97
[2024-09-03 04:13] LABS: Basophils Percent Auto 0.3 % (0.2-1.2); Eosinophils Percent Auto 0.1 % (0-4.4); Hematocrit 26.3 % (37.0-47.0); Hemoglobin 8.4 g/dL (12.0-15.0); Immature Granulocyte Absolute 0.06 K/mm3 (0.00-0.031); Immature Granulocyte Percent A 0.4 % (0-0.5); Lymphocytes Absolute Auto 1.22 K/mm3 (0.9-3.2); Lymphocytes Percent Auto 8.1 % (18.3-44.2); Mean Corpuscular HGB Conc 31.9 g/dl (32-36); Mean Corpuscular Hemoglobin 31.7 pg (26-34); Mean Corpuscular Volume 99.2 fl (80-100); Mean Platelet Volume 8.8 fl (7.4-10.4); Monocytes Absolute Auto 0.7 K/mm3 (0.1-0.6); Monocytes Percent Auto 4.6 % (2.6-8.5); Neutrophils Absolute Auto 13.1 K/mm3 (1.3-6.7); Neutrophils Percent Auto 86.5 % (45.5-73.1); Platelet Count Result 195 k/mm3 (150-375); Red Blood Count 2.65 M/mm3 (4.2-5.4); Red Cell Distribution Width 13.2 % (11.5-14.5); White Blood Count 15.1 K/mm3 (4.5-10.0)
--- NOTE | 2024-09-03 07:17 | PM.OBPNVD ---
OB - PN: Subj Subjective Date/time seen: 09/03/24 07:17 Interval history: urine much clearer Patient comments: no complaints, pain well controlled, tolerating diet and flatus present [place] baby status: doing well OB - PN: Obj Data Labs 09/03/24 03:36 Labs: Laboratory Results - last 24 hr 09/02/24 09/03/24 08:50 03:36 WBC 11.7 H 15.1 H RBC 4.31 2.65 L Hgb 13.6 8.4 L D Hct 41.4 26.3 L MCV 96.1 99.2 MCH 31.6 31.7 MCHC 32.9 31.9 L RDW 13.1 13.2 Plt Count 271 195 MPV 8.8 8.8 Immature Gran % (Auto) 0.4 0.4 Neut % (Auto) 79.0 H 86.5 H Lymph % (Auto) 15.4 L 8.1 L [place] % (Auto) 4.1 4.6 Eos % (Auto) 0.8 0.1 Baso % (Auto) 0.3 0.3 Lymph # (Auto) 1.79 1.22 [place] # (Auto) 0.5 0.7 H Eos # (Auto) 0.1 0.0 Baso # (Auto) 0.0 0.0 Abs Immat Gran (auto) 0.05 H 0.06 H Absolute Neuts (auto) 9.2 H 13.1 H Absolute Nucleated RBC 0.000 0.000 Nucleated RBC % 0.0 0.0 Syphilis IgG/IgM Ab Negative HIV 1&2 Ab/P24 Ag 4thGn Negative Blood Type A Positive Antibody Screen Negative OB - PN A/P Assessment and Plan (1) Delivery by section: Status: Acute (2) , delivered: Code(s): O80 - Encounter for full-term uncomplicated delivery Status: Acute Plan routine care Time Spent With Patient Time: Total time spent is greater than 50% in coordination of care (as documented) at patient's floor/unit and/or counseling patient: Review of Systems Review of Systems: All systems reviewed & are unremarkable except as noted in HPI and below Exam Const: Orientation/consciousness: patient oriented x3 Other: Well-developed, well-nourished female in no acute distress. Neck: Thyroid: thyroid normal Lymphatic: no lymphadenopathy noted (in neck, axilla or inguinal nodes) Resp: Effort & Inspection: normal respiratory effort Auscultation: clear to auscultation bilaterally Cardio: Rate: regular rate Rhythm: regular rhythm Heart sounds: S1 normal heart sound present and S2 normal heart sound present GI: Other: ABD: Soft, nontender, nondistended, gravid. NST reactive 125. TOCO: irregular contractions. No guarding or rebound tenderness. No hepatosplenomegaly. : General: Yes no CVA tenderness Other: Cervix 5/80/-2. Bloody show. Vertex. AROM with clear fluid. IUPC placed. Back/Spine/Pelvis: Back: no CVA tenderness Skin: General skin exam: normal color and no rashes or lesions noted Neuro: General: patient oriented x3 Extrem: Other: Extremities: nontender with no edema Psych: Mental Status: mental status grossly normal Affect: normal affect
[2024-09-03 07:30] VITALS: BP 104/58; PULSE 84; RESP 16; TEMP 36.6; O2SAT 100
[2024-09-03] MEDS: MULTIVIT/MIN/PREN/FOL AC/IRON TABLET 1 TAB PO (07:44)
[2024-09-03] MEDS: POLYSACCHARIDE IRON COMPLEX 150 MG CAPSULE PO ×2 (07:44→16:11)
[2024-09-03] MEDS: DOCUSATE SODIUM 100 MG CAPSULE PO ×2 (07:44→16:11)
[2024-09-03 11:30] VITALS: BP 111/59; PULSE 78; RESP 16; TEMP 36.8; O2SAT 98
--- NOTE | 2024-09-03 15:08 | PC.NURSE ---
1445. Introductions were made, then consulted with patient to assess needs related to . Discussed with mother her plans to feed her and the experience so far. Encouraged mother to express any questions or concerns she has regarding feedings. Advised her to call out for a latch check or if she needs assistance waking or positioning baby. Reviewed the blue feeding worksheet for required output and feeding at least 8-12 times every 24 hours. Resources provided for inpatient and outpatient services with the feeding sheet, mom/baby guide, and name/number written on the communication board. Mother verbalizes she is able to independently latch infant with appropriate positioning and alignment. She denies any nipple discomfort and is responsively . is currently meeting outcomes blood sugar and feeding frequencies of 8-12 times in 24 hours. She reports she has her own pump at home and her own nipple measuring tool for correct flange sizing. She reports she takes no over the counter medications except for her and tylenol occasionally. Mother declines any additional assistance or education at this time. Mother is encouraged to call for assistance if her doesn?t latch, pain with latching, questions or concerns. Mother voiced understanding of information shared along with the mom/baby guide for an additional resource. Reported to the Primary RN.
--- NOTE | 2024-09-03 16:38 | WPDANLDPN2 ---
Anes-Prog Note L&D Date/Time: 09/03/24 16:38 Comfortable throughout: labor and section Neuraxial method: epidural Epidural/Spinal procedure site: clean & non-tender Neuro status: Neuro function grossly intact. Cardiovascular status: normal Respiratory status: normal Airway patency: baseline Mental status: baseline Post-Op hydration status: normal Vital Signs: Last Vital Signs Temp 36.8 C 09/03/24 11:30 Pulse 78 09/03/24 11:30 Resp 16 09/03/24 11:30 BP 111/59 L 09/03/24 11:30 Pulse Ox 98 09/03/24 11:30 O2 Del Method Room Air 09/02/24 23:47 Pain score (VAS): 05/11 I/O: Intake & Output 09/03/24 09/03/24 09/03/24 07:59 15:59 23:59 Intake Total 600 960 Output Total 650 300 Balance -50 660 Post-procedural complaints: pruritis (moderate, refractory to treatment) Patient feedback: Patient satisfied with anesthetic care.
--- NOTE | 2024-09-03 16:39 | WPDANLDNPN2 ---
Anes-Prog Note L&D-Neuraxial Date/Time: 09/03/24 16:39 Neuraxial medications: epidural PF morphine Opiod-related complaints: pruritis (moderate, treatment refractory) Patient feedback: Patient satisfied with post-operative pain management.
[2024-09-03 20:00] VITALS: BP 112/64; PULSE 83; RESP 18; TEMP 36.3; O2SAT 94
[2024-09-04] MEDS: SIMETHICONE 80 MG TAB.CHEW PO ×2 (04:15→08:18)
[2024-09-04] MEDS: ACETAMINOPHEN 325 MG TABLET 650 MG PO (04:15)
[2024-09-04] MEDS: IBUPROFEN 600 MG TABLET PO (04:15)
--- NOTE | 2024-09-04 07:24 | P.PNOB_ITS ---
OB - PN: Subj Subjective Date/time seen: 09/04/24 07:24 Interval history: urine much clearer Patient comments: no complaints, pain well controlled, tolerating diet and flatus present [place] baby status: doing well OB - PN: Obj Data Labs 09/03/24 03:36 OB - PN A/P Assessment and Plan (1) , delivered: Code(s): O80 - Encounter for full-term uncomplicated delivery Status: Acute (2) Delivery by section: Status: Acute Plan home. follow up 4 weeks Time Spent With Patient Time: Total time spent is greater than 50% in coordination of care (as documented) at patient's floor/unit and/or counseling patient: Exam 2 Const: General: cooperative, healthy appearing and comfortable O rientation/consciousness: oriented to person, oriented to place, oriented to time and patient oriented x3 Other: Well-developed, well-nourished female in no acute distress. HENMT: Head: normal to inspection Neck: Thyroid: thyroid normal Lymphatic: no lymphadenopathy noted (in neck, axilla or inguinal nodes) Resp: Effort & Inspection: normal respiratory effort Auscultation: clear to auscultation bilaterally Cardio: Rate: regular rate Rhythm: regular rhythm Heart sounds: S1 normal heart sound present and S2 normal heart sound present GI: Inspection: normal to inspection and incision (cdi) Other: ABD: Soft, nontender, nondistended, gravid. NST reactive 125. TOCO: irregular contractions. No guarding or rebound tenderness. No hepatosplenomegaly. : General: Yes no CVA tenderness Other: Cervix 5/80/-2. Bloody show. Vertex. AROM with clear fluid. IUPC placed. Back/Spine/Pelvis: Back: no CVA tenderness Skin: General skin exam: normal color and no rashes or lesions noted Neuro: General: patient oriented x3 Extrem: Other: Extremities: nontender with no edema Psych: Mental Status: mental status grossly normal Affect: normal affect
--- NOTE | 2024-09-04 08:00 | PC.NURSE ---
Consulted with mother concerning needs and she shared her ability to independently latch infant optimally without pain. Mother is feeding appropriately for growth of and understands stimulating to eat if needed. Infant has had appropriate feedings in the last 24 hours meets the outcomes for weight, output, blood sugar and jaundice at this time. Reinforced understanding of milk production, transition of milk, signs of adequate intake, transition of stool, prevention/relief of engorgement, mastitis, community resources, and when to call a provider using the resource of the feeding sheet along with the mom and baby guide. She has a breast pump for home use and declines a referral to WIC. Mother voiced understanding of the information shared, is confident to continue effectively her at home, when to call for assistance, denies any additional assistance or education at this time. Reported to the Primary RN.
[2024-09-04] MEDS: DOCUSATE SODIUM 100 MG CAPSULE PO (08:18)
[2024-09-04] MEDS: POLYSACCHARIDE IRON COMPLEX 150 MG CAPSULE PO (08:18)
[2024-09-04] MEDS: MULTIVIT/MIN/PREN/FOL AC/IRON TABLET 1 TAB PO (08:18)
[2024-09-04 08:20] VITALS: BP 112/61; PULSE 91; RESP 18; TEMP 36.4; O2SAT 100
[2024-09-05 09:21] VITALS: BP 122/69; PULSE 94; RESP 18; TEMP 36.9; O2SAT 100
== END 2024-09-04 10:10 | disposition home or self-care (01) | DRG 788 ==
LOC: ANHLDR 22:21 → ANHOB2 09-03
PROVIDERS: Obstetrics & Gynecology; Admitting Provider Obstetrics & Gynecology; Visit Provider Obstetrics & Gynecology
PROC: 10D00Z1 Extraction of Products of Conception, Low, Open Approach (ICD-10-PCS; CPT 59514; principal; 2024-09-02 20:10)
DX: O34.211 Maternal care for low transverse scar from previous cesarean delivery (principal); Z37.0 Single live birth; Z3A.39 39 weeks gestation of pregnancy; O36.8330 Maternal care for abnormalities of the fetal heart rate or rhythm, third trimester, not applicable or unspecified; O62.1 Secondary uterine inertia
CPT/HCPCS: 36415; 85025; 86593; 86703; 86850; 86900; 86901; A9270; G0432; J0690; J1885; J2274; J2405; J2590; J2795; J7120